=== PATIENT | female | born 1970 | race Caucasian/White ===

== ENCOUNTER 2024-07-24 07:39 | Day surgery (SDC) | payer OTHER ==
[2024-07-21 13:46] VITALS: BMI 48.9
[2024-07-24] MEDS: SODIUM CHLORIDE 0.9% 1,000 ML IV SCH (07:53)
[2024-07-24 08:19] LABS: Basophils # (A) 0.1 k/uL (0-0.2); Basophils % (A) 1 %; Eosinophils # (A) 0.2 k/uL (0-0.7); Eosinophils % (A) 4 %; HCT 42.7 % (34.0-46.0); HGB 14.2 gm/dL (11.4-16.0); Lymphocytes # (A) 2.7 k/uL (1.0-4.8); Lymphocytes % (A) 40 %; MCH 30.1 pg (25.0-35.0); MCHC 33.3 g/dL (31.0-37.0); MCV 90.3 fL (80.0-100.0); Mean Platelet Volume 8.1; Monocytes # (A) 0.4 k/uL (0-1.0); Monocytes % (A) 6 %; Neutrophils # (A) 3.3 k/uL (1.3-7.7); Neutrophils % (A) 48 %; Platelet Count 285 k/uL (150-450); RBC 4.73 m/uL (3.80-5.40); RDW 13.6 % (11.5-15.5); WBC 6.9 k/uL (3.8-10.6)
[2024-07-24 08:33] LABS: ALT 23 U/L (4-34); AST 25 U/L (14-36); African American GFR (CKD) 84 (>60 ml/min/1.73 sqM); Albumin 4.6 g/dL (3.5-5.0); Alkaline Phosphatase 75 U/L (38-126); Anion Gap 6 mmol/L; Blood Urea Nitrogen 19 mg/dL (7-17); Calcium 9.6 mg/dL (8.4-10.2); Carbon Dioxide 25 mmol/L (22-30); Chloride 110 mmol/L (98-107); Glucose 101 mg/dL (74-99); Non-African American GFR(CKD) 73 (>60 ml/min/1.73 sqM); Potassium 4.3 mmol/L (3.5-5.1); Sodium 141 mmol/L (137-145); Total Bilirubin 0.6 mg/dL (0.2-1.3); Total Protein 7.3 g/dL (6.3-8.2)
[2024-07-24] MEDS ORDERED: PHENYLEPHRINE 10 MG/ML VIAL ONE (09:09)
[2024-07-24] MEDS ORDERED: HEPARIN SODIUM,PORCINE 10,000 UNIT/ML 1 ML VIAL ONE (09:09)
[2024-07-24] MEDS ORDERED: ISOPROTERENOL 250 MCG/1.25 ML SYR IV ONE (09:09)
[2024-07-24] MEDS ORDERED: MIDAZOLAM 2 MG/2 ML VIAL ONE (09:09)
[2024-07-24] MEDS: HEPARIN SODIUM,PORCINE (1 ML) 2,500 UNIT in SODIUM CHLORIDE 0.9% 250 ML IRRIGATION ONE (09:09)
[2024-07-24] MEDS: HEPARIN SODIUM,PORCINE 10,000 UNIT in SODIUM CHLORIDE 0.9% 1,000 ML IRRIGATION ONE (09:09)
[2024-07-24] MEDS ORDERED: HEPARIN SODIUM,PORCINE 5,000 UNIT/ML 1 ML VIAL ONE (09:09)
[2024-07-24] MEDS: IV FLUID CONTINUATION 1,000 ML IV ONE (09:09)
[2024-07-24] MEDS ORDERED: fentaNYL (PF) 50 MCG/ML 2 ML AMP ONE (09:09)
[2024-07-24] MEDS ORDERED: PROPOFOL 10 MG/ML 20 ML VIAL IV ONE (09:09)
[2024-07-24] MEDS ORDERED: SUCCINYLCHOLINE CHLORIDE 200 MG/10 ML VIAL IV ONE (09:09)
[2024-07-24] MEDS: HEPARIN SOD,PORK IN 0.45% NACL 25,000 UNIT in 0.45% NACL 1 250ML.BAG IV ONE (10:00)
[2024-07-24] MEDS: LIDOCAINE 1% INJ 10MG/ML (20 ML MDV) SQ ONE (10:00)
[2024-07-24] MEDS: IOPAMIDOL-370 100ML BTL INJ ONE (11:56)
[2024-07-24] MEDS ORDERED: TAMSULOSIN 0.4 MG CAP.ER.24H PO PRN (12:23)
[2024-07-24] MEDS ORDERED: ACETAMINOPHEN TAB 325 MG TAB PO PRN (12:25)
[2024-07-24] MEDS: ACETAMINOPHEN IV (For NPO) 1,000 MG in EMPTY BAG 1 BAG IVPB ONE (12:31)
--- NOTE | 2024-07-24 12:32 | P.HPCAR ---
History of Present Illness This is Dr. 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 When she came in this morning she was in sinus rhythm. Subsequently she went to A-fib with RVR. Later once again she went back to sinus rhythm She continues to experience palpitations No syncope. Denies any chest discomfort She was noted to have cardiomyopathy with an ejection fraction of 40% but on medical treatment her LV function improved to 50-55% Her loop monitor shows that her A-fib burden is not around 35% She has morbid obesity with obstructive sleep apnea and uses a CPAP mask ROS: No fever chills or rigors, no cough, phlegm or expectoration, no nausea, vomiting or diarrhea, no hematuria, dysuria, no musculoskeletal complaints, no strokes or seizures, no skin lesions. EXAMINATION: 190s over 64 mmHg, pulse rate in the 50s afebrile Breath sounds are reduced bilaterally no rhonchi no crackles Heart sounds S1-S2 normal no murmurs no gallop no rub No lower extremity edema No JVD Increased BMI REVIEW OF LABS, ECG & MEDICAL DATA Normal hemoglobin 14.2 Normal electrolytes BUN 19 creatinine 0.9 Normal liver function test TSH 2.3, normal Physical Exam Vitals: Vital Signs Temp Pulse Resp BP Pulse Ox 07/24/24 08:27 98.8 F 56 L 16 119/64 96 Intake and Output 07/23/24 07/24/24 07/24/24 22:59 06:59 14:59 Intake Total 845 Balance 845 Intake: IV 845 Other: Weight 134.4 kg Past Medical History Past Medical History: Atrial Fibrillation, Heart Failure, Deep Vein Thrombosis (DVT), Hyperlipidemia, Hypertension Additional Past Medical History / Comment(s): See Dr Steward's H&P,complex regional pain syndrome, developed cardiac symptoms after 3rd covid infection Apr 2022-had 2 prior covid infections 2020,2021,kidney stones,takes metformin for wt loss,dvt left leg post total knee 2020 History of Any Multi-Drug Resistant Organisms: None Reported Past Surgical History: Joint Replacement, Tubal Ligation Additional Past Surgical History / Comment(s): total left knee,lithotripsy x2,pain procedures Past Anesthesia/Blood Transfusion Reactions: No Reported Reaction, Family History of Problems w/ Anesthesia, Motion Sickness Additional Past Anesthesia/Blood Transfusion Reaction / Comment(s): sometimes takes awhile to come out of anesthesia or coming out to quickly. no hx blood transfusion. siblings take awhile coming out of anesthesia or coming out to quickly. Difficult IV start Type of Cardiac Device: Loop Smoking Status: Never smoker - Past Family History Mother Family Medical History: CVA/TIA Father Family Medical History: Myocardial Infarction (RI) Physical Examination Vital Signs Temp Pulse Resp BP Pulse Ox 07/24/24 08:27 98.8 F 56 L 16 119/64 96 Intake and Output 07/23/24 07/24/24 07/24/24 22:59 06:59 14:59 Intake Total 845 Balance 845 Intake: IV 845 Other: Weight 134.4 kg Results 07/24/24 08:02 07/24/24 08:02 Cardiac Enzymes 07/24/24 Range/Units 08:02 AST 25 (14-36) U/L CBC 07/24/24 Range/Units 08:02 WBC 6.9 (3.8-10.6) k/uL RBC 4.73 (3.80-5.40) m/uL Hgb 14.2 (11.4-16.0) gm/dL Hct 42.7 (34.0-46.0) % Plt Count 285 (150-450) k/uL Comprehensive Metabolic Panel 07/24/24 Range/Units 08:02 Sodium 141 (137-145) mmol/L Potassium 4.3 (3.5-5.1) mmol/L Chloride 110 H (98-107) mmol/L Carbon Dioxide 25 (22-30) mmol/L BUN 19 H (7-17) mg/dL Creatinine 0.91 (0.52-1.04) mg/dL Glucose 101 H (74-99) mg/dL Calcium 9.6 (8.4-10.2) mg/dL AST 25 (14-36) U/L ALT 23 (4-34) U/L Alkaline Phosphatase 75 (38-126) U/L Total Protein 7.3 (6.3-8.2) g/dL Albumin 4.6 (3.5-5.0) g/dL Current Medications Generic Name Dose Route Start Last Admin Trade Name Freq PRN Reason Stop Dose Admin Acetaminophen 650 mg 07/24/24 12:25 Acetaminophen Tab 325 Mg Tab PO Q6HR PRN Mild Pain (Scale 1 to 3) Apixaban 5 mg 07/24/24 21:00 Apixaban 5 Mg Tab PO BID DEMETRIA Protocol Acetaminophen 1,000 mg/ IV 100 mls @ 400 mls/hr 07/24/24 12:25 Solution IVPB 07/24/24 12:39 ONCE ONE Metformin HCl 500 mg 07/26/24 13:00 Metformin 500 Mg Tab PO DAILY DEMETRIA Metoprolol Tartrate 100 mg 07/24/24 21:00 Metoprolol Tartrate 50 Mg Tab PO BID DEMETRIA Sacubitril/Valsartan 1 each 07/24/24 21:00 Sacubitril/Valsartan 49 Mg-51 Mg Tablet PO BID DEMETRIA Sodium Chloride 12 ml 07/24/24 12:25 Sodium Chloride 0.9% Flush 10 Ml Syringe IV Q12HR PRN Line Flush Tamsulosin HCl 0.4 mg 07/24/24 12:23 Tamsulosin 0.4 Mg Cap.Er.24h PO DAILY PRN kidney stones Intake and Output 07/23/24 07/24/24 07/24/24 22:59 06:59 14:59 Intake Total 845 Balance 845 Intake: IV 845 Other: Weight 134.4 kg Patient Weight 07/25/24 06:59 Weight 134.4 kg 07/24/24 08:02 07/24/24 08:02
--- NOTE | 2024-07-24 12:35 | P.PRLE ---
RE: Luz Sen Dear Dr. Keysha Escobar came in for an A-fib ablation. She was having paroxysms of A-fib with RVR interspersed with sinus rhythm in the holding area. She underwent an antral level isolation of all pulmonary veins as well as ablation of the left atrial septum Following that we could not induce atrial fibrillation with burst stimulation and extrastimulation from either high right atrium or CS. High-dose Isopril was also used but no atrial fibrillation was induced Intracardiac echo revealed normal LV function with very mild thickening of the pericardium. She will continue Eliquis uninterrupted, particularly for the next 2 months to reduce risks of stroke Thank you for entrusting me with the care of the patient Warm regards Sincerely Dipesh Steward
--- NOTE | 2024-07-24 12:40 | P.EPPROC ---
- EP Procedure Note Electrophysiology Procedure Note: PROCEDURE A. fib ablation with pulmonary vein isolation at an antral level and left atrial septal ablation DIAGNOSIS Paroxysmal atrial fibrillation, symptomatic, refractory to therapy and associated with tachycardia mediated cardiomyopathy RESULT No left atrial appendage mass seen on intracardiac echo, mild thickening of the pericardium, normal LV function Successful A. fib ablation/pulmonary vein isolation of all veins using cryo- ablation Complete entrance block in all 4 veins confirmed No evidence for phrenic nerve injury Esophageal deflection YES, right-sided esophagus PROCEDURE DETAILS Written informed consent prior to procedure. Patient brought to the EP lab. General anesthesia given. Heparin administered. A city maintained above 300 seconds Both groins prepped and draped per protocol and venous sheaths placed. Esophagus intubated, circa catheter for temperature monitoring an endoscope for possible esophageal deflection. Phrenic nerve monitoring performed. Esophageal temperature monitoring performed. Esophageal deflection performed if circa catheter overlapping with the balloon or circa temperature less than 27.5C Intracardiac echocardiography performed. Pericardium evaluated. Left atrial appendage evaluated. Left atrium evaluated along with pulmonary veins Transseptal catheterization performed under fluoroscopic guidance and intracardiac echo guidance Cryoablation sheath exchanged, balloon catheter along with achieve catheter placed in the left atrium. Pulmonary veins isolated in the following sequence: Left superior pulmonary vein followed by left inferior pulmonary vein, followed by right inferior pulmonary vein and lastly right superior pulmonary vein. Phrenic nerve stimulation along with capture thresholds within the SVC and right superior pulmonary vein to identify the phrenic nerve proximity to the cryo- balloon. Pulmonary veins isolated and confirmed with entrance and exit block. Phrenic nerve integrity confirmed at the end of the procedure Ablation of the left atrial septum performed with cannulation of the superior branch of the right inferior or the inferior branch of the right superior vein to achieve ablation of the posterior septum of the left atrium. Ablation of electrograms confirmed Diagnostic catheters for the high right atrium, His bundle, coronary sinus placed. LA and RA pressures recorded LA pressure: 20/6/14 mmHg Diagnostic EP study with coronary sinus pacing and recording Baseline measurements: Sinus cycle length 1200 ms, IL interval 157, QRS 120 and QT 376 ms AV node Wenckebach block 400 ms Sinus node recovery times at a pacing cycle length of 500 ms was 1413 ms. Corrected sinus node recovery times normal Burst stimulation from the high right atrium from 400 ms down to 300 ms did not induce atrial fibrillation High-dose Isopril was employed Burst stimulation was performed down to 250 ms from the coronary sinus os No atrial fibrillation induced Atrial extra stimulation was performed and atrial ERP was 600/less than 300 ms. No atrial fibrillation or any SVT Venous sheaths were removed and hemostasis assured with a closure device. Patient extubated and transferred to recovery PROCEDURES PERFORMED Diagnostic EP study CS pacing and recording Left and right transseptal catheterization Catheter the mapping of the tachycardia Intracardiac echocardiography Pulmonary vein isolation with transseptal and comprehensive EPS, [id number] Drug infusion, +[id number] Linear ablation, left atrium, +[id number]
[2024-07-24] MEDS: droPERidol 5 MG/2 ML VIAL IVP ONE (12:51)
[2024-07-24] MEDS: LACTATED RINGERS 1,000 ML IV SCH (16:29)
[2024-07-24] MEDS: SACUBITRIL/VALSARTAN 49 MG-51 MG TABLET PO SCH (20:25)
[2024-07-24] MEDS: METOPROLOL TARTRATE 50 MG TAB PO SCH (20:25)
[2024-07-24] MEDS: APIXABAN 5 MG TAB PO SCH (20:25)
[2024-07-25 07:20] VITALS: BP 122/77; PULSE 55; RESP 15; TEMP 98.6
--- NOTE | 2024-07-25 11:49 | P.DS ---
Providers Attending physician: Dipesh Steward Primary care physician: [facility] Course: Patient is doing well. No chest discomfort. Mild sore throat. No dizziness no lightheadedness On examination, pulse rate in the 60s, blood pressure 110/76 mmHg Heart sounds are normal and regular no murmurs no rub Lungs are clear no rhonchi no crackles Impression Recurrent paroxysmal atrial fibrillation with RVR History of associated cardiomyopathy Status post PVI at the antral level and left atrial septal ablation No inducible atrial fibrillation thereafter both on and off Isopril Plan Discharge home Continue anticoagulation Follow-up with primary lead programmer Plan - Discharge Summary Discharge Rx Participant: No New Discharge Prescriptions: New Metoprolol Tartrate [Lopressor] 100 mg PO BID #180 tablet Discontinued Metoprolol Tartrate [Lopressor] 150 mg PO BID No Action Tamsulosin HCl [Flomax] 0.4 mg PO DAILY PRN PRN Reason: kidney stones traMADol HCL 25 - 50 mg PO Q8HR PRN PRN Reason: Pain hydrOXYzine HCL [Atarax] 50 mg PO QID PRN PRN Reason: Anxiety metFORMIN HCL 500 mg PO DAILY Fluticasone Nasal Cornelius [Flonase Nasal Cornelius] 2 spray EA NOSTRIL DAILY PRN PRN Reason: Congestion Albuterol Inhaler [Ventolin Hfa Inhaler] 1 - 2 puff INHALATION Q6H PRN PRN Reason: sob Cetirizine HCl [Zyrtec] 10 mg PO HS Sacubitril/Valsartan [Entresto 49 mg-51 mg Tablet] 1 each PO BID Apixaban [Eliquis] 5 mg PO BID Discharge Medication List Albuterol Inhaler [Ventolin Hfa Inhaler] 1 - 2 puff INHALATION Q6H PRN 07/21/24 [History] Apixaban [Eliquis] 5 mg PO BID 07/21/24 [History] Cetirizine HCl [Zyrtec] 10 mg PO HS 07/21/24 [History] Fluticasone Nasal Cornelius [Flonase Nasal Cornelius] 2 spray EA NOSTRIL DAILY PRN 07/21/24 [History] Sacubitril/Valsartan [Entresto 49 mg-51 mg Tablet] 1 each PO BID 07/21/24 [History] Tamsulosin HCl [Flomax] 0.4 mg PO DAILY PRN 07/21/24 [History] hydrOXYzine HCL [Atarax] 50 mg PO QID PRN 07/21/24 [History] metFORMIN HCL 500 mg PO DAILY 07/21/24 [History] traMADol HCL 25 - 50 mg PO Q8HR PRN 07/21/24 [History] Metoprolol Tartrate [Lopressor] 100 mg PO BID #180 tablet 07/24/24 [Rx] Follow up Appointment(s)/Referral(s): Mellissa Chopra DO [REFERRING] - 1 Week Patient Instructions/Handouts: Cardiac Ablation (DC) Activity/Diet/Wound Care/Special Instructions: Post EP study - Ablation instructions 1. Keep access sites dry for 2 days. 2. No heavy lifting or straining for 2 days. 3. Avoid bending the hips repeatedly for 2 days. 4. You may go up and down stairs slowly 5. If you have had an ablation for atrial fibrillation or atrial flutter and are on a blood thinner, do not stop the blood thinner even temporarily for 3 months post ablation Call if the following is noted 1. Bleeding, increasing swelling or pain at the access sites. 2. Increasing chest discomfort, especially upon taking a deep breath. 3. Increasing shortness of breath, at rest or with exertion. 4. Undue cough / phlegm 5. Difficulty or pain while swallowing. 6. Pain or change in color in the extremities. 7. Fever, chills, rigors. 8. Increasing headache or neurologic symptoms. 9. Dizziness, fainting, palpitations Reduce metoprolol dose to 100 mg twice daily For patients who have undergone an A-fib ablation /atrial flutter ablation Strict instruction; do NOT stop anticoagulation (Eliquis/Xarelto/Pradaxa) for the next 2 months temporarily, for any elective, nonurgent surgery. This increases the risk of stroke, post A-fib ablation Discharge Disposition: HOME SELF-CARE
[2024-07-26] MEDS ORDERED: metFORMIN 500 MG TAB PO SCH (13:00)
== END 2024-07-25 12:14 | disposition home or self-care (01) ==
LOC: CATHEP 07:39 → 6NMEDSUR 11:55 → CATHEP 07-25 12:14
PROVIDERS: ATTEND Internal Medicine Clinical Cardiac Electrophysiology
DX: I48.0 Paroxysmal atrial fibrillation (principal); I42.9 Cardiomyopathy, unspecified; I11.0 Hypertensive heart disease with heart failure; I50.9 Heart failure, unspecified; E78.5 Hyperlipidemia, unspecified; G47.33 Obstructive sleep apnea (adult) (pediatric); Z79.01 Long term (current) use of anticoagulants; Z79.84 Long term (current) use of oral hypoglycemic drugs; Z86.16 Personal history of COVID-19; Z86.718 Personal history of other venous thrombosis and embolism; Z98.51 Tubal ligation status
CPT/HCPCS: 93623; 93656; 93657; 86900; 86901; 80053; 84443; 85025; 86850; 81025; C1894; C1769; C1760; C1730 ×2; C1759; C1733; C1766; J2250; J0330; J1644 ×3; J2003; J3010; J0131; J2704; Q9967; J1790; J2371